=== PATIENT | female | born 1965 | race Caucasian/White ===

== ENCOUNTER 2017-10-18 10:45 | Emergency (ER) | payer SELFPAY ==
[~2017-10-18] VITALS: Ht 162.6 cm; Wt 81.0 kg
[~2017-10-18 10:45] MED LIST: ACETTAB3; ALBUTEROL2.5 MG/3 M IN; ALEVE220 MG OR; AMOXICILLIN500 M2 PO; AMOXICILLIN500 MG PO; AMOXICILLIN875 MG OR; AUGMENTIN500TAB PO; AUGMENTIN875TAB OR; AUGMENTIN875TAB PO; BENADRYL 50MG C50 MG PO; CETIRIZ/PSE1 TAB PO; CHERATUSSIN OR; CLONAZEP ODT0.5 MG PO; CLONIDINE0.1 MG PO; DESYREL50 MG/TAB PO; DOXYCYCL HYC100 MG PO; FIORICET PO; FIORICET/COD OR; FIORICET/COD PO; FLEXERIL OR; FLEXERIL PO; GABAPENTIN400 M2 PO; HYDROCHLOR12.5 MG/CA PO; IBUPROFEN600 MG PO; IMITREX25 MG PO; KENALOG-4040 MG/ML IC; KETOROLAC60 MG/2 ML IJ; LEVAQUIN500 MG PO; LISINOP/HCTZ1 TAB PO; LISINOPRIL10 MG PO; LORTAB 1010 MG PO; MECLIZINE25 M1 PO; MECLIZINE25 MG PO; MEDDOSEPAK PO; MUCINEX DM1 TAB PO; MUCINEX600 MG PO; NAPROSYN500 MG PO; NEBULIZER; NYSTATIN100000 M1 PO; ONDANSETRON4 MG OR; PAROXETINE20 MG PO; PAROXETINE40 MG PO; PREDNISONE20 MG PO; PROAIR HFA IN; SOMA350 MG PO; SUMATRIPTAN25 MG PO; TESSALON PER100 MG PO; TORADOL OR; VENTOLIN HFA IN; ZANTAC 150 PO; ZANTAC SYRUP15 MG/ML PO; ZANTAC150 M1 PO; ZANTAC150 MG; ZITHROMAX500 MG PO; ZOFRAN ODT4 MG PO
[2017-10-18] MEDS ORDERED: LIPITOR10 M1 PO (10:55)
[2017-10-18] MEDS ORDERED: VISTARIL25 MG PO (11:27)
[2017-10-18] MEDS ORDERED: ATORVASTATIN CA40 MG PO (11:27)
[2017-10-18] MEDS ORDERED: LOSARTAN POT25 MG PO (11:28)
[2017-10-18] MEDS ORDERED: NEXIUM40 M1 PO (11:28)
[2017-10-18] MEDS ORDERED: LEXAPRO10 MG PO (11:29)
[2017-10-18 12:06] LABS: INFLUENZA A NONE DETECTED (NONE DETECT); INFLUENZA B NONE DETECTED (NONE DETECT)
[2017-10-18] MEDS ORDERED: VENTOLIN HFA IN (12:48)
[2017-10-18] MEDS ORDERED: MEDDOSEPAK PO (12:48)
[2017-10-18] MEDS ORDERED: AMOXICILLIN500 MG PO (12:48)
[2017-10-18 12:50] VITALS: BP 159/78
== END 2017-10-18 12:50 | disposition home or self-care (01) | DRG 203 ==
LOC: ED 10:45
PROVIDERS: Emergency Medicine
DX: J40 Bronchitis, not specified as acute or chronic (principal); F17.210 Nicotine dependence, cigarettes, uncomplicated; I10 Essential (primary) hypertension; I25.10 Atherosclerotic heart disease of native coronary artery without angina pectoris; F41.9 Anxiety disorder, unspecified